=== PATIENT | male | born 1985 | race Caucasian/White ===

== ENCOUNTER 2024-01-08 12:19 | Emergency (ER) | payer BC, SELFPAY ==
[2024-01-08 12:27] VITALS: BP 138/91
--- NOTE | 2024-01-08 14:27 | ED.GENMED ---
History of Present Illness
General
Chief Complaint: DVT/Possible Blood Clot
Source: patient
Exam Limitations: none
Time Seen by Provider: 01/08/24 14:22
Nursing documentation reviewed up to this point in time: agreed with
Travel History
Have you had any contact with someone who has COVID-19?: No
Do you have any symptoms of coronavirus? Fever > 100 degrees, chills, cough, shortness of breath, sore throat, loss of taste or smell, muscle aches, or headache?: No
History of Present Illness
History of Present Illness:
38-year-old male with history of DVT in the left lower extremity, on Eliquis, states this morning he developed lower calf pain in the left leg. He denies redness or warmth or swelling.
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
Past History
Past History
ED Past Medical History: None and Psychiatric (Anxiety, bipolar disorder)
ED Past Surgical History: Orthopedic
Social History
Tobacco: Non-smoker
Personal:
Living: with family
Employment: Employed
Review of Systems
Review of Systems
Allergies reviewed?: Yes
All Other Systems: ROS reviewed and negative except as documented in HPI and ROS
Respiratory: Denies trouble breathing
Cardiac: Denies chest pain
Musculoskeletal: Reports other (Pain lower left calf)
Skin: Reports no symptoms
Phy Exam
Physical Exam
Physical Exam:
PHYSICAL EXAMINATION:
General: no apparent distress, not acutely ill
Neuro: alert and oriented.
Psychiatric: well kept. interactive and cooperative
Musculoskeletal: Point tender at lower left calf muscle. No redness, swelling, warmth, distal neurovascular intact. Moves with ease
Skin: Warm, pink.
Course
Orders/Labs/Results
Orders:
Orders
01/08/24 12:30
US Legs, Left [US Periph Venous LOWER Ext LT] Urgent
Comment:
Reason For Exam: r/o dvt
Vital Signs
Initial and Last Documented VS:
Initial Vital Signs
Temp Pulse Resp BP Pulse Ox
98.1 F 80 16 138/91 98
01/08/24 12:27 01/08/24 12:27 01/08/24 12:27 01/08/24 12:27 01/08/24 12:27
Last Documented Vital Signs
Temp Pulse Resp BP Pulse Ox
98.1 F 80 16 138/91 98
01/08/24 12:27 01/08/24 12:27 01/08/24 12:27 01/08/24 15:10 01/08/24 12:27
MDM/Problems Addressed
Differential Diagnosis Includes:
Musculoskeletal strain, DVT
MDM/Problems Addressed:
38-year-old male with history of DVT in the left lower extremity, on Eliquis, states this morning he developed lower calf pain in the left leg. He denies redness or warmth or swelling.
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
01/08/2024 1516 PM
Ultrasound negative for DVT
Patient is point tender at the lower aspect of his left calf, most likely a muscle strain given the type of work that he does
Ambulating well.
*Critical Care Note
Total Time (30-74mins, 75-104mins- exclusive of procedures): Not Applicable
ED Attending Note
-
Portions of this chart may have been created with voice recognition software.� Occasional wrong word or��sound alike� substitutions may have occurred due to the inherent limitations of voice recognition software.
Discharge Plan
Departure
Patient Disposition: Home (Routine Discharge)
Date of Disposition: 01/08/24
Time of Disposition: 15:14
Patient with high blood pressure during this ER visit?: Yes
Condition: Good
Discharge Problem:
Pain of left calf
Instructions: Lower Extremity Muscle Strain (DC)
Prescriptions:
No Action
aripiprazole [Abilify] 15 mg Tablet
15 mg PO DAILY
bupropion HCl [Wellbutrin XL] 300 mg Tablet Extended Release 24 Hr
300 mg PO DAILY
atomoxetine 80 mg Capsule
80 mg PO DAILY
ibuprofen 800 mg Tablet
800 mg PO Q6H PRN (Reason: pain)
armodafinil 250 mg Tablet
250 mg PO DAILY
Referrals:
Talat Hyatt MD [Family Provider] - As needed
Activity Restrictions/Additional Instructions:
As we discussed, your ultrasound is negative for a clot. You most likely strained the muscle of the lower calf.
Avoid any activity that aggravates the pain
Interventions
Interventions:
*Risk Screen - Suicide Last Done: 01/08/24 12:27
*General Assessment Last Done: 01/08/24 12:27
*Neglect/Abuse Screening Last Done: 01/08/24 12:27
*Nursing Disposition Last Done: 01/08/24 15:10
[2024-01-08 15:10] VITALS: BP 138/91
== END 2024-01-08 15:23 | disposition home or self-care (01) ==
LOC: EMR 12:19
PROVIDERS: EMERGENCY PHYSICIAN Emergency Medicine; FAMILY PHYSICIAN Family Medicine
DX: M79.662 Pain in left lower leg (principal); R03.0 Elevated blood-pressure reading, without diagnosis of hypertension; Z79.01 Long term (current) use of anticoagulants; Z86.718 Personal history of other venous thrombosis and embolism
CPT/HCPCS: 99284; 93971

== ENCOUNTER → 2024-06-28 16:55 | Outpatient (REF) | payer BC, SELFPAY | LOC: RAD 16:55 | PROVIDERS: ATTENDING PHYSICIAN Surgery; FAMILY PHYSICIAN Family Medicine | DX: N50.3 Cyst of epididymis (principal) | CPT/HCPCS: 76870; 93976 ==

== ENCOUNTER → 2024-09-09 07:44 | Outpatient (REF) | payer BC, SELFPAY | LOC: HWRCS 07:44 | PROVIDERS: ATTENDING PHYSICIAN Internal Medicine Cardiovascular Disease; FAMILY PHYSICIAN Family Medicine | DX: I10 Essential (primary) hypertension (principal) | CPT/HCPCS: 93306 ==

== ENCOUNTER → 2025-05-30 07:14 | Outpatient (REF) | payer BC, SELFPAY | LOC: PAVMRI 07:14 | PROVIDERS: ATTENDING PHYSICIAN Physical Medicine & Rehabilitation | DX: M54.16 Radiculopathy, lumbar region (principal) | CPT/HCPCS: 72148 ==